=== PATIENT | male | born 1955 ===

== ENCOUNTER 2021-05-04 05:38 | Outpatient (CLI) | payer OTHER ==
[~2021-05-04] VITALS: Ht 162.6 cm; Wt 71.3 kg
[2021-05-06] MEDS ORDERED: RT-ALBUINH IH (12:24)
[2021-05-06] MEDS ORDERED: LISI20TA26 PO (12:24)
[2021-05-06] MEDS ORDERED: ATOR20TA66 PO (12:24)
== END 2021-05-06 14:08 | disposition home or self-care (01) ==
LOC: PREOP 05:38
PROVIDERS: ATTEND Surgery
DX: Z01.818 Encounter for other preprocedural examination (principal)

== ENCOUNTER → 2022-01-20 | Outpatient (CLI) | payer OTHER ==
[~2022-01-20] MED LIST: ATOR20TA66 PO; LISI20TA26 PO; RT-ALBUINH IH; RT-ALBUTEROL SULF 2.5 MG/3 ML PRE-MIX VIAL INH ONE
== END ==
LOC: RT 15:45
PROVIDERS: ATTEND Nurse Practitioner Family
DX: T73.3XXA Exhaustion due to excessive exertion, initial encounter (principal)
CPT/HCPCS: 94060; 94726; 94729